=== PATIENT | male | born 1985 | race Two or more races ===

== ENCOUNTER 2020-03-15 15:19 | Emergency (ER) | payer OTHER ==
[~2020-03-15] VITALS: Ht 185.4 cm; Wt 71.4 kg
[2020-03-15 16:46] VITALS: BP 127/77
== END 2020-03-15 17:09 | disposition home or self-care (01) ==
LOC: ER 15:20
DX: S20.211A Contusion of right front wall of thorax, initial encounter (principal); S40.211A Abrasion of right shoulder, initial encounter; V89.9XXA Person injured in unspecified vehicle accident, initial encounter; Y93.89 Activity, other specified; Y92.828 Other wilderness area as the place of occurrence of the external cause; Y99.8 Other external cause status
CPT/HCPCS: 71101; 93005; 99283